=== PATIENT | female | born 1990 | race Caucasian/White ===

== ENCOUNTER 2016-02-20 09:44 | Emergency (ER) | payer BC ==
[2016-02-20 10:05] VITALS: BP 131/85
--- NOTE | 2016-02-20 10:22 | UC ---
Skin Complaint HPI - HPI Summary HPI Summary: GENERALIZED RASH X 1 DAY , NOT ITCHY , NO NEW SOAP, DETERGENT, NO NEW FOOD OR DRINKS + RECENT COLD SX WITH COUGH , NASAL CONGESTION, SORE THROAT , NO FEVER - History of Current Complaint Chief Complaint: UCRash Time Seen by Provider: 02/20/16 10:12 Stated Complaint: SKIN COMPLAINT Hx Obtained From: Patient Hx Last Menstrual Period: 2 weeks ago ?: No Onset/Duration: Gradual Onset, Lasting Days - 1, Still Present Timing: Constant Onset Severity: Moderate Current Severity: Moderate Location: Diffuse, Generalized Aggravating: Nothing Alleviating: Nothing Associated Signs & Symptoms: Positive: Cough. Negative: Nausea, Vomiting, Numbness, Weakness, Pallor, Fever, Chills, Wheezing, Chest Pain, Hoarseness, Throat Tightening, Tenderness - Allergy/Home Medications Allergies/Adverse Reactions: Allergies Allergy/AdvReac Type Severity Reaction Status Date / Time No Known Allergies Allergy Verified 02/20/16 10:05 Home Medications: Home Medications Control 1 tab PO DAILY 02/20/16 [History Confirmed 02/20/16] Review of Systems Constitutional: Negative Skin: Rash Eyes: Negative ENT: Sore Throat, Nasal Discharge Respiratory: Cough Cardiovascular: Negative Gastrointestinal: Negative Genitourinary: Negative All Other Systems Reviewed And Are Negative: Yes PMH/Surg Hx/FS Hx/Imm Hx Previously Healthy: Yes - Surgical History Surgical History: None - Family History Known Family History: Negative: Diabetes - Social History Alcohol Use: Occasionally Substance Use Type: None Smoking Status (MU): Never Smoked Tobacco Physical Exam Triage Information Reviewed: Yes Appearance: Well-Appearing, No Pain Distress, Well-Nourished Vital Signs: Initial Vital Signs Temp 97.7 F 02/20/16 09:51 Pulse 89 02/20/16 09:51 Resp 14 02/20/16 09:51 BP 131/85 02/20/16 09:51 Pulse Ox 99 02/20/16 09:51 Vital Signs Reviewed: Yes Eyes: Positive: Conjunctiva Clear ENT: Positive: Normal ENT inspection, Hearing grossly normal, Pharynx normal, TMs normal. Negative: Pharyngeal erythema, Nasal congestion, Nasal drainage Neck exam: Normal Neck: Positive: Supple, Nontender, No Lymphadenopathy Respiratory: Positive: Chest non-tender, Lungs clear, Normal breath sounds Cardiovascular: Positive: RRR, No Murmur, Pulses Normal Abdominal Exam: Normal Skin: Positive: rashes - GENARALIZED MACULAR RASH Course/Dx - Diagnoses Provider Diagnoses: VIRAL RASH Discharge - Discharge Plan Condition: Stable Disposition: HOME Patient Education Materials: Viral Exanthem (ED) Referrals: Adore Zhou MD [Primary Care Provider] - Additional Instructions: FOLLOW UP NEEDED
== END 2016-02-20 10:54 | disposition home or self-care (01) ==
LOC: UCCORT 09:44
DX: L08.89 Other specified local infections of the skin and subcutaneous tissue (principal); B97.89 Other viral agents as the cause of diseases classified elsewhere; R05 Cough; R09.81 Nasal congestion
CPT/HCPCS: 87651; 99201; G0463

== ENCOUNTER 2018-07-20 12:48 | Emergency (ER) | payer BC ==
[2018-07-20 13:25] VITALS: BP 120/86
--- NOTE | 2018-07-20 13:26 | UC ---
Throat Pain/Nasal Elder HPI - HPI Summary HPI Summary: Patient presents to urgent care reporting 10 days of sinus congestion sore throat now with some ear fullness. Patient states she's been taking DayQuil/ medical/ Sudafed and emergen-C with little improvement. Patient states she feels warm but no documented fevers. Patient has taken Motrin and Tylenol intermittently last does 2-3 days ago. Pt states has progressive fullness and congestion and her sinuses. Patient states she feels fatigued. Patient states she does feel better for short term following a shower. Patient denies nausea or vomiting. Patient does have a cough bringing up some green sputum that she thinks is postnasal drip from her nose. Patient does not have a history of allergies. Patient is not short of breath. Patient's friend had strep throat and she spent time with her about 2 weeks ago. Patient's medications reviewed this visit. - History of Current Complaint Chief Complaint: UCGeneralIllness Stated Complaint: SORE THROAT, EAR, COUGH Time Seen by Provider: 07/20/18 13:25 Hx Obtained From: Patient Hx Last Menstrual Period: 07/18/18 Pain Intensity: 7 - Allergies/Home Medications Allergies/Adverse Reactions: Allergies Allergy/AdvReac Type Severity Reaction Status Date / Time No Known Allergies Allergy Verified 02/20/16 10:05 Home Medications: Home Medications Ascorbic Acid/Multivit-Min [Emergen-C 1,000 mg Packet] 1 packet PO ONCE [History Confirmed 07/20/18] Dextromethorphan Polistirex [Delsym] 10 ml PO ONCE 07/20/18 [History Confirmed 07/20/18] Dm/Acetaminophen/Doxylamine [Night Cold-Flu Relief Liq Gel] 2 tab PO ONCE [History Confirmed 07/20/18] Dm/Pseudoephed/Acetaminophen [Day-Time Cold-Flu Softgel] 2 tab PO ONCE 07/20/18 [History Confirmed 07/20/18] Ibuprofen TAB* [Advil TAB*] 800 mg PO ONCE 07/20/18 [History Confirmed 07/20/18] Pseudoephedrine HCl [Sudafed 12 Hour] 1 tab PO ONCE 07/20/18 [History Confirmed 07/20/18] PMH/Surg Hx/FS Hx/Imm Hx Previously Healthy: Yes - Surgical History Surgical History: None Surgery Procedure, Year, and Place: precancerous birthmark removed at age 8 - Family History Known Family History: Positive: Non-Contributory Negative: Diabetes - Social History Occupation: Employed Full-time Lives: With Family Alcohol Use: Occasionally Substance Use Type: None Smoking Status (MU): Never Smoked Tobacco Review of Systems All Other Systems Reviewed And Are Negative: Yes Constitutional: Positive: Fever - tactile Eyes: Positive: Negative ENT: Positive: Sore Throat, Ear Ache, Sinus Congestion, Sinus Pain/Tenderness Respiratory: Positive: Cough Physical Exam - Summary Physical Exam Summary: Vital Signs Reviewed: Yes A+Ox3, congested Eyes: Conjunctiva Clear, NIGHAT. EOM intact and full ENT: Hearing grossly normal right ear + mild fluid, no erythema, no buldge, left wnl, turbinates inflammed and boggy . + PND thick secretions, +TTP maxillary sinuses L>R mmoist, uvula midline, no exudate, no erythema Neck: Positive: Supple, mild submandibular LA Respiratory: Positive: No respiratory distress, No accessory muscle use + CTA throughout no w/r Cardiovascular: RRR nl s1, s2 no m/r CBT <2 sec abd soft + BS nt/nd no guarding, no distension Musculoskeletal Exam: STEWART x 4 without difficulty Strength Intact, ROM Intact Neurological: Positive: Alert, + sensation throughout Psychological: Positive: Normal Response To Family Skin: Positive: no rash, no ecchymosis Triage Information Reviewed: Yes Vital Signs: Initial Vital Signs Temp 97.8 F 07/20/18 13:21 Pulse 102 07/20/18 13:21 Resp 16 07/20/18 13:21 BP 120/86 07/20/18 13:21 Pulse Ox 99 07/20/18 13:21 Throat Pain/Nasal Course/Dx - Course Course Of Treatment: Patient presents to urgent care reporting 10 days of progressive sinus congestion sore throat patient hasn't and cough. Patient states she's been using several [id number] medications are not improving. Patient states she is concerned that she skin infection she just not getting better. Vital signs are stable. On exam patient with audible congestion. Patient with fluid in her right ear. Patient with boggy sinus isn't tender maxillary sinuses (the right. Patient has some small submandibular lymphadenopathy. Postnasal drip Strep throat was negative. We'll start antibiotics for sinus infection as well as Flonase. Patient has never had a yeast infections recommend she take probiotics or eat yogurt. Patient comfortable with plan. Discussed with patient secretion precautions. Decongestants. Motrin/apap - Differential Dx/Diagnosis Provider Diagnosis: Rhinosinusitis, Serous otitis media Discharge - Sign-Out/Discharge Documenting (check all that apply): Patient Departure All imaging exams completed and their final reports reviewed: No Studies - Discharge Plan Condition: Stable Disposition: HOME Prescriptions: Amoxicillin PO (*) [Amoxicillin 875 MG (*)] 875 mg PO BID #20 tab Fluticasone NASAL SPRAY 50MCG* [Flonase NASAL SPRAY 50MCG*] 2 spray BOTH NARES DAILY #1 btl Patient Education Materials: Rhinosinusitis (ED), Serous Otitis Media (ED) Print Language: SLOVAK Forms: *Work Release Referrals: Adore Zhou MD [Primary Care Provider] - Additional Instructions: - Stay well hydrated. Drink plenty of non-alcoholic, non-caffinated beverages. - Alternate ibuprofen (Advil, Motrin) 600mg and Tylenol every 3 hours for pain or fever. Take with food. Do NOT take for more than 4-5 days. - These infections are spread by secretions - do NOT share eating or drinking utensils - clean items you share with other people such as cell phones, computer mouse, TV remote, computer tablets,etc. Once you have been antibiotics for 2 days, change your toothbrush and your pillowcase. - get plenty of restful sleep - humidify the air in the room where you sleep - boil water, run a hot steam shower, vaporizer, cups of water by heat register - okay to take over the counter decongestant and cough medication - use nasal spray as prescribed - eating yogurt or taking probiotics can help decrease the chance of developing a vaginal yeast infection related to antibiotics - contact your doctor or return with questions or concerns - Billing Disposition and Condition Condition: STABLE Disposition: Home
== END 2018-07-20 13:56 | disposition home or self-care (01) ==
LOC: UCCORT 12:48
DX: J32.9 Chronic sinusitis, unspecified (principal); H65.93 Unspecified nonsuppurative otitis media, bilateral
CPT/HCPCS: 87651; 99212; G0463